=== PATIENT | male | born 1930 | race Caucasian/White ===

== ENCOUNTER 2019-01-13 17:11 | Observation (INO) ==
[2019-01-13 18:12] LABS: Hematocrit 32.7 % (42.0-52.0); Hemoglobin 10.7 gm/dL (13.5-18.0); Mean Cell Volume 83.6 fl (78-100); Mean Corpuscular Hemoglobin 27.4 pg (27-31); Mean Corpuscular Hgb Conc 32.7 g/dl (32-36); Mean Platelet Volume 10.5 fl (8-11.3); Neutrophil # 8.9 K/mm3 (1.3-6.0); Neutrophil % 80.2 % (42-75.0); Platelet Count 299 K/mm3 (150-450); Red Blood Count 3.91 M/mm3 (4.7-6.0); Red Cell Distribution Width 18.4 % (11.5-14.0)
[2019-01-13 18:27] LABS: ALT 453 U/L (19-67); AST 407 U/L (0-48); Albumin * 3.1 gm/dl (3.4-5.0); Alkaline Phosphatase * 658 U/L (50-170); Anion Gap 18.6 mmol/L (6.8-13.8); Bilirubin, Total 1.3 mg/dL (0.0-1.1); Blood Urea Nitrogen 38 mg/dL (6-23); Ca. Corrected For Albumin 9.1 mg/dL (8.4-10.2); Calcium * 8.7 mg/dL (7.9-10.9); Carbon Dioxide 23.5 mmol/L (24-32.6); Chloride 102 mmol/L (97-106); Digoxin 1.5 ng/mL (0.5-2.0); Glucose * 169 mg/dL (70-110); Potassium 5.1 mmol/L (3.4-4.6); Sodium 139 mmol/L (132-142); Total Protein 7.2 gm/dL (6.2-8.2)
[2019-01-13 18:30] LABS: Troponin I Less than 0.017 ng/mL (0.00-0.10)
[2019-01-13] MEDS ORDERED: NORMAL SALINE 1,000 ML IV ONE (18:52)
[2019-01-13] MEDS ORDERED: PIPERACILLIN SODIUM/TAZOBACTAM 3.375 GM in DEXTROSE 5 % IN WATER 100 ML IV ONE ×2 (18:52)
--- NOTE | 2019-01-13 19:18 | ERNOTE ---
Neuro HPI ER Record Date of Service: 01/13/19 Presenting Symptoms: weakness Time Seen by Provider: 01/13/19 17:42 Source: patient, family Exam Limitations: no limitations Immunizations: IMMUNIZATION HX Immunizations Up to Date Yes History of Influenza Vaccine Yes Hx Pneumococcal Vaccination Yes Allergies/Adverse Reactions: Allergies Allergy/AdvReac Type Severity Reaction Status Date / Time indomethacin AdvReac Intermediate RN CLINICAL REVIEW SIDE Verified 01/13/19 17:24 AFFECTS, UPSET STOMACH gluten AdvReac Mild GI s/s, Verified 01/13/19 17:24 HAS CELIAC DX lactose AdvReac Mild GI S/S Verified 01/13/19 17:24 NSAIDS (Non-Steroidal AdvReac AVOID PER Verified 01/13/19 17:[address] Anti-[address] ORDER Home Medications: HOME MEDICATIONS Atenolol [Tenormin] 25 mg PO DAILY #0 06/03/14 [Last Taken 07/09/16 04:00] Folic Acid 1 mg PO DAILY #0 06/03/14 [Last Taken 02/05/16 09:00] Omeprazole 40 mg PO DAILY #0 06/03/14 [Last Taken 02/05/16 09:00] Donepezil HCl [Aricept] 5 mg PO HS 01/22/16 [Last Taken 02/05/16 19:00] Finasteride [Proscar] 5 mg PO DAILY 01/22/16 [Last Taken 02/05/16 09:00] Acetaminophen [Tylenol] 500 mg PO Q4H PRN 07/05/16 [Last Taken Unknown] FLUoxetine HCL [Prozac] 20 mg PO DAILY 07/05/16 [Last Taken Unknown] Loperamide HCl [Imodium] 2 mg PO DAILY 07/05/16 [Last Taken Unknown] Cyanocobalamin (Vitamin B-12) [Vitamin B12] 1,000 mcg PO DAILY #1 tab 07/11/16 [Last Taken Unknown] Cholecalciferol [Vitamin D] 1,000 unit PO DAILY 05/15/18 [Last Taken Unknown] aspirin 81 mg chewable tablet 81 mg PO DAILY 05/30/18 [Last Taken Unknown] digoxin 125 mcg tablet 0.125 mg PO DAILY #90 tab 08/05/18 [Last Taken Unknown] diphenoxylate-atropine 2.5 mg-0.025 mg tablet 2.5 mg PO TID #90 tab 08/28/18 [Last Taken Unknown] Allopurinol [Zyloprim (Allopurinol)] 200 mg PO DAILY 01/13/19 [Last Taken U nknown] Travoprost [Travatan Z] 1 drp OPHTHALMIC (EYE) DAILY 01/13/19 [Last Taken Unknown] - History of Present Illness Narrative: Patient presents to the ED from assisted living. He has not been eating over the last 3-4 days. Today he was noted to be somewhat confused and could no longer walk on his own. This is over 6 hours old. The patient himself denies any pain. he denies any focal weakness. He normally walks with a walker, needed nursing assistance to get out of chair tonight. Son states that he didn't even touch his dinner tonight. He denies CP, cough, SOB, fever, abdominal pain or orhter complaints at this time. Onset: other - well over 6 hours - Character of Deficits New weakness: Present: other - trouble walking, chronic leg weakness. No acute unilateral focal motor or sensory deficits Additional Deficits: Present: cannot walk Baseline Gait: Present: uses a cane/walker Associated Symptoms: Reports: confused. Denies: fever/chills, chest pain, headache Prior Treament: Denies: recently seen, recently hospitalized Review of Systems - Review of Systems Constitutional: Absent: fever Respiratory: Absent: shortness of breath Cardiology: Absent: chest pain Gastrointestinal/Abdominal: Absent: abdominal pain Genitourinary: Absent: dysuria All Other Systems: All systems neg except as marked Medical History (Last Reviewed 01/13/19 @ 19:08 by Isaac Hodge MD) Anemia Onset Date: Unknown BPH without urinary obstruction Onset Date: Unknown Fracture of radius and ulna Onset Date: ~01/14/12 Left lower end; closed; distal end of ulna (alone) Gait disorder Onset Date: ~05/19/14 Hx of malignant melanoma of skin Onset Date: Unknown Skin CA removal on left ear, Skin CA to scalp Removal Hyperlipidemia due to dietary fat intake Onset Date: Unknown Internal derangement of knee Onset Date: ~01/14/12 Left Knee Left patella fracture Onset Date: ~01/16/12 From a fall Memory deficit Onset Date: ~05/19/14 Neuropathy Onset Date: 02/25/14 Bilat legs; L4-L5 NCV [facility] 02/25/2014 Osteoarthritis Onset Date: Unknown PPD positive Onset Date: ~1995 Pseudogout Onset Date: ~02/27/12 Renal failure Onset Date: ~200809 Grade 3 Rosacea, acne Onset Date: Unknown Tinnitus Onset Date: Unknown Varicose veins of left lower extremity with pain Onset Date: Unknown Visual impairment Onset Date: Unknown Wears glasses Surgical History: Surgical History (Last Reviewed 01/13/19 @ 19:08 by Isaac Hodge MD) History of carpal tunnel surgery of right wrist Onset Date: Unknown Hx of colonoscopy Onset Date: Unknown Celiac Hx of hernia repair Onset Date: ~1989 Left Sided Hernia Repair Family History: Family History (Last Reviewed 01/13/19 @ 19:08 by Isaac Hodge MD) Father , @ age 60 Myocardial infarction Mother Hypertension Son Asthma Social History: Preferred Language Botswanan Do you have any sabianism or No cultural preference? Smoking Status Never smoker Abuse History No History of abuse Psych History No pertinent hx Alcohol Use none Drug Use none (Last Updated 05/30/18 @ 12:17 by Brian Chang DO) No Social History Section defined Physical Exam - Physical Exam General Appearance: Present: alert, no apparent distress, other - lying in bed with eyes closed, no distress. Easliy arouses and answers questions Head Exam: Present: normal inspection, no evidence of injury Eye Exam: Normal inspection: bilateral, PERRL: bilateral Ears, Nose, Throat: Present: dry mucous membranes, other - clinically dehydrated Neck: Present: normal inspection Respiratory: Present: no respiratory distress, normal breath sounds, no accesso ry muscle use, lungs clear Cardiovascular/Chest: Present: normal peripheral pulses, irregularly irregular Gastrointestinal/Abdominal: Present: normal bowel sounds, nontender, nondistended, soft, other - I cannot elicit any tendenress in the abdomen Back Exam: Absent: CVA tenderness (R), CVA tenderness (L) Extremity Exam: Present: normal range of motion Neurological Exam: Present: alert, no motor/sensory deficits, other - NIH - 0. I do not identify any evidence of acute stroke by exam. Skin Exam: Present: normal color, warm/dry Progress - Results and Orders Patient's Lab Results:: I have reviewed the patient's lab results. - Vital Signs Patient's Vital Signs:: I have reviewed the patient's vital signs. Vital Signs: Vital Signs 01/13/19 17:18 Temperature 36.6 C Pulse Rate 87 Respiratory Rate 16 Blood Pressure 105/60 O2 Sat by Pulse Oximetry 91 L - EKG EKG #1 EKG: atrial fibrillation EKG read: Interp. by me - X-Ray X-Ray #1 X-Ray: chest Interpretation: Interp. by me X-ray Comments: I reviewed official radiology report - CT/Ultrasound CT/Ultrasound Narrative: I reviewed official radiology report for CT head. - Progress/Reassessment Chief Complaint: Altered Mental Status Progress Note-Subjective: 01/13/19 19:10 Patient clinically dehydrated which is likely the cause of his worsening kidney function. I ordered IV fluids. Has elevated bili/liver enzymes. IV ABx given for this, Zosyn. Patient needs further evaluation of his RUQ for painless bili and liver enzyme elevation. I can elicit no tenderness in the abdomen with palpation. I discussed the case with Dr Pokl who will admit him here for IV fluids and further work up for his lab abnormalities. Patient and family agreeable. I have initiated the admission process with RUQ US ordered in am. A cath UA is pending, I will have Dr Mccray the night doctor check the urine before he goes to the floor and discuss this with Dr Polk if indicated. Family is agreeable to the patient staying here for initial management and work up, understanding that he may need to be transferred based on what findings emerge. 01/13/19 19:46 Departure Clinical Impression: Elevated liver enzymes, Weakness, Dehydration, Worsening renal function, Elevated bilirubin - Departure Disposition: Still a patient Condition: Fair
[2019-01-13 19:48] LABS: Urine Ketone 5 mg/dL (NEGATIVE); Urine Nitrite Negative (NEGATIVE); Urine Protein 100 mg/dL (NEGATIVE); Urine Specific Gravity 1.025 SP.GR. (1.005-1.030)
[2019-01-13 19:59] LABS: Urine Blood 5 /ul (NEGATIVE); Urine Color Amber
[2019-01-13 20:00] LABS: Urine Appearance Clear (CLEAR); Urine Bacteria 1+; Urine Mucus Moderate - 2+; Urine RBC 0-5 /hpf (0-5)
--- NOTE | 2019-01-13 23:56 | HP ---
Chief Complaint - Chief Complaint Date of Service: 01/13/19 Time of Service: 23:53 Chief Complaint: Altered mental status History of Present Illness: Morgan is an 88 yo male, a resident at [facility] where he is independent with assistance. He was reported to not be eating or drinking for the last three days and had an altered mental state where he stopped talking. He is reported to do this when he gets sick. He was brought to the [facility] ER for further evaluation. Creatinine is elevated at 3 with 1 as a baseline. He also has elevated bilirubin and liver enzymes. He makes good eye contact but does not attempt to engage in conversation. He has no evidence of discomfort. Medical History (Last Reviewed 01/13/19 @ 19:08 by Isaac Hodge MD) Anemia Onset Date: Unknown BPH without urinary obstruction Onset Date: Unknown Fracture of radius and ulna Onset Date: ~01/14/12 Left lower end; closed; distal end of ulna (alone) Gait disorder Onset Date: ~05/19/14 Hx of malignant melanoma of skin Onset Date: Unknown Skin CA removal on left ear, Skin CA to scalp Removal Hyperlipidemia due to dietary fat intake Onset Date: Unknown Internal derangement of knee Onset Date: ~01/14/12 Left Knee Left patella fracture Onset Date: ~01/16/12 From a fall Memory deficit Onset Date: ~05/19/14 Neuropathy Onset Date: 02/25/14 Bilat legs; L4-L5 NCV EMG [facility] 02/25/2014 Osteoarthritis Onset Date: Unknown PPD positive Onset Date: ~1995 Pseudogout Onset Date: ~02/27/12 Renal failure Onset Date: ~200809 Grade 3 Rosacea, acne Onset Date: Unknown Tinnitus Onset Date: Unknown Varicose veins of left lower extremity with pain Onset Date: Unknown Visual impairment Onset Date: Unknown Wears glasses Surgical History: Surgical History (Last Updated 01/13/19 @ 21:11 by Veronika Rahman RN) Shoulder fracture, left Repaired surgically History of carpal tunnel surgery of right wrist Onset Date: Unknown Hx of colonoscopy Onset Date: Unknown Celiac Hx of hernia repair Onset Date: ~1989 Left Sided Hernia Repair Family History: Family History (Last Reviewed 01/13/19 @ 19:08 by Isaac Hodge MD) Father , @ age 60 Myocardial infarction Mother Hypertension Son Asthma Social History: Patient Lives/Resources [facility] Utilized Preferred Language Slovenian Do you have any catholic or No cultural preference? Smoking Status Never smoker Have you smoked in the past 12 No months Abuse History No History of abuse Psych History No pertinent hx Alcohol Use none Drug Use none (Last Updated 05/30/18 @ 12:17 by Brian Chang DO) No Social History Section defined Review Of Systems (GEN) - Review of Systems Additional Comments: Unable to get ROS due to patient condition Immunizations: IMMUNIZATION HX Immunizations Up to Date Yes History of Influenza Vaccine Yes Hx Pneumococcal Vaccination Yes Allergies/Adverse Reactions: Allergies Allergy/AdvReac Type Severity Reaction Status Date / Time indomethacin AdvReac Intermediate DENTAL FINANCIAL COORDINATOR SIDE Verified 01/13/19 17:24 AFFECTS, UPSET STOMACH gluten AdvReac Mild GI s/s, Verified 01/13/19 17:24 HAS CELIAC DX lactose AdvReac Mild GI S/S Verified 01/13/19 17:24 NSAIDS (Non-Steroidal AdvReac AVOID PER Verified 01/13/19 17:[address] ORDER Home Medications: HOME MEDICATIONS Atenolol [Tenormin] 25 mg PO DAILY #0 06/03/14 [Last Taken 07/09/16 04:00] Folic Acid 1 mg PO DAILY #0 06/03/14 [Last Taken 02/05/16 09:00] Omeprazole 40 mg PO DAILY #0 06/03/14 [Last Taken 02/05/16 09:00] Donepezil HCl [Aricept] 5 mg PO HS 01/22/16 [Last Taken 02/05/16 19:00] Finasteride [Proscar] 5 mg PO DAILY 01/22/16 [Last Taken 02/05/16 09:00] Acetaminophen [Tylenol] 500 mg PO Q4H PRN 07/05/16 [Last Taken Unknown] FLUoxetine HCL [Prozac] 20 mg PO DAILY 07/05/16 [Last Taken Unknown] Loperamide HCl [Imodium] 2 mg PO PRN PRN 07/05/16 [Last Taken Unknown] Cholecalciferol [Vitamin D] 1,000 unit PO DAILY 05/15/18 [Last Taken Unknown] aspirin 81 mg chewable tablet 81 mg PO DAILY 05/30/18 [Last Taken Unknown] digoxin 125 mcg tablet 0.125 mg PO DAILY #90 tab 08/05/18 [Last Taken Unknown] diphenoxylate-atropine 2.5 mg-0.025 mg tablet 2.5 mg PO TID #90 tab 08/28/18 [Last Taken Unknown] Allopurinol [Zyloprim (Allopurinol)] 200 mg PO DAILY 01/13/19 [Last Taken Unknown] Cyanocobalamin (Vitamin B-12) [Vitamin B12] 1,000 mcg INJ Q30D 01/13/19 [Last Taken 12/29/18] Loperamide HCl [Imodium] 2 mg PO DAILY 01/13/19 [Last Taken Unknown] Travoprost [Travatan Z] 1 drp OPHTHALMIC (EYE) DAILY 01/13/19 [Last Taken Unknown] Exam - Exam Vital Signs: Vital Signs - Last Taken Temp 36.8 C 01/13/19 21:53 Pulse 76 01/13/19 21:53 Resp 16 01/13/19 21:53 BP 125/66 01/13/19 21:53 Pulse Ox 94 01/13/19 21:53 Constitutional: Present: Alert, Other - Morgan makes eye contact, but does not attmept to communicate Eye Exam: bilateral eye: normal inspection Respiratory: Present: lungs clear, normal breath sounds Cardiovascular/Chest: Present: regular rate, rhythm, no murmur Abdomen: Present: Normal bowel sounds, soft, nontender, nondistended Skin Exam: Present: normal color, warm/dry, no cyanosis Diagnostic Studies: Abnormal Lab Results 01/13/19 01/13/19 01/13/19 Range/Units 18:00 18:00 18:40 WBC 11.0 H (4.0-10.5) K/mm3 RBC 3.91 L (4.7-6.0) M/mm3 Hgb 10.7 L (13.5-18.0) gm/dL Hct 32.7 L (42.0-52.0) % RDW 18.4 H (11.5-14.0) % Immature Gran % (Auto) 0.50 H (0.001-0.429) % Immature Gran # (Auto) 0.05 H (0.000-0.0310) K/mm3 Neutrophils % 80.2 H (42-75.0) % Lymphocytes % 8.3 L (20-51) % Monocytes % 10.6 H (0.0-9) % Neutrophils # 8.9 H (1.3-6.0) K/mm3 Lymphocytes # 0.91 L (1.5-3.5) k/mm3 Monocytes # 1.2 H (0.0-1.0) k/mm3 Potassium 5.1 H (3.4-4.6) mmol/L Carbon Dioxide 23.5 L (24-32.6) mmol/L Anion Gap 18.6 H (6.8-13.8) mmol/L BUN 38 H (6-23) mg/dL Creatinine 3.17 H D (0.4-1.4) mg/dL Est GFR (Non-Af Amer) 20 L D (60-130) mL/min Random Glucose 169 H (70-110) mg/dL Total Bilirubin 1.3 H (0.0-1.1) mg/dL AST 407 H (0-48) U/L ALT 453 H (19-67) U/L Alkaline Phosphatase 658 H (50-170) U/L Albumin 3.1 L (3.4-5.0) gm/dl Urine Protein 100 H (NEGATIVE) mg/dL Urine Blood 5 H (NEGATIVE) /ul Urine Bilirubin 3 H (NEGATIVE) mg/dl Prot Sulfosalicylic Acd 4+ H (0) mg/dL Urine Urobilinogen 2.0 H (NORMAL) EU/dl Ur Leukocyte Esterase 25 H (NEGATIVE) /ul Urine WBC 5-10 H (0-5) /hpf Urine Bacteria 1+ H (NONE) Urine Mucus Moderate - 2+ H (NONE) Laboratory Results WBC 11.0 K/mm3 (4.0-10.5) H 01/13/19 18:00 RBC 3.91 M/mm3 (4.7-6.0) L 01/13/19 18:00 Hgb 10.7 gm/dL (13.5-18.0) L 01/13/19 18:00 Hct 32.7 % (42.0-52.0) L 01/13/19 18:00 MCV 83.6 fl (78-100) 01/13/19 18:00 MCH 27.4 pg (27-31) 01/13/19 18:00 MCHC 32.7 g/dl (32-36) 01/13/19 18:00 RDW 18.4 % (11.5-14.0) H 01/13/19 18:00 Plt Count 299 K/mm3 (150-450) 01/13/19 18:00 MPV 10.5 fl (8-11.3) 01/13/19 18:00 Immature Gran % (Auto) 0.50 % (0.001-0.429) H 01/13/19 18:00 Immature Gran # (Auto) 0.05 K/mm3 (0.000-0.0310) H 01/13/19 18:00 Neutrophils % 80.2 % (42-75.0) H 01/13/19 18:00 Lymphocytes % 8.3 % (20-51) L 01/13/19 18:00 Monocytes % 10.6 % (0.0-9) H 01/13/19 18:00 Eosinophils % 0.1 % (0.0-3.0) 01/13/19 18:00 Basophils % 0.3 % (0.0-1.0) 01/13/19 18:00 Nucleated RBC % 0.0 k/mm3 (0-1) 01/13/19 18:00 Neutrophils # 8.9 K/mm3 (1.3-6.0) H 01/13/19 18:00 Lymphocytes # 0.91 k/mm3 (1.5-3.5) L 01/13/19 18:00 Monocytes # 1.2 k/mm3 (0.0-1.0) H 01/13/19 18:00 Eosinophils # 0.0 k/mm3 (0.0-0.7) 01/13/19 18:00 Absolute Basophils 0.0 k/mm3 (0.0-0.1) 01/13/19 18:00 Sodium 139 mmol/L (132-142) 01/13/19 18:00 Plasma Sodium 140 mmol/L (130-142) 01/13/19 18:00 Potassium 5.1 mmol/L (3.4-4.6) H 01/13/19 18:00 Chloride 102 mmol/L (97-106) 01/13/19 18:00 Carbon Dioxide 23.5 mmol/L (24-32.6) L 01/13/19 18:00 Anion Gap 18.6 mmol/L (6.8-13.8) H 01/13/19 18:00 BUN 38 mg/dL (6-23) H 01/13/19 18:00 Creatinine 3.17 mg/dL (0.4-1.4) H D 01/13/19 18:00 Est GFR (Non-Af Amer) 20 mL/min (60-130) L D 01/13/19 18:00 BUN/Creatinine Ratio 12.0 (9.0-21.6) 01/13/19 18:00 Random Glucose 169 mg/dL (70-110) H 01/13/19 18:00 Lactic Acid, Venous 1.3 mmol/L (0.4-2.0) 01/13/19 18:00 Calcium 8.7 mg/dL (7.9-10.9) 01/13/19 18:00 Calcium Adj for Albumin 9.1 mg/dL (8.4-10.2) 01/13/19 18:00 Total Bilirubin 1.3 mg/dL (0.0-1.1) H 01/13/19 18:00 AST 407 U/L (0-48) H 01/13/19 18:00 ALT 453 U/L (19-67) H 01/13/19 18:00 Alkaline Phosphatase 658 U/L (50-170) H 01/13/19 18:00 Troponin I Less than 0.017 ng/mL (0.00-0.10) 01/13/19 18:00 Total Protein 7.2 gm/dL (6.2-8.2) 01/13/19 18:00 Albumin 3.1 gm/dl (3.4-5.0) L 01/13/19 18:00 Urine Color Leslie 01/13/19 18:40 Urine Appearance Clear (CLEAR) 01/13/19 18:40 Urine pH 6.0 pH (5.0-7.0) 01/13/19 18:40 Ur Specific [place] 1.025 SP.GR. (1.005-1.030) 01/13/19 18:40 Urine Protein 100 mg/dL (NEGATIVE) H 01/13/19 18:40 Urine Glucose (UA) Negative mg/dL (NEGATIVE) 01/13/19 18:40 Urine Ketones 5 mg/dL (NEGATIVE) 01/13/19 18:40 Urine Blood 5 /ul (NEGATIVE) H 01/13/19 18:40 Urine Nitrate Negative (NEGATIVE) 01/13/19 18:40 Urine Bilirubin 3 mg/dl (NEGATIVE) H 01/13/19 18:40 Urine Ictotest Negative (NEGATIVE) 01/13/19 18:40 Prot Sulfosalicylic Acd 4+ mg/dL (0) H 01/13/19 18:40 Urine Urobilinogen 2.0 EU/dl (NORMAL) H 01/13/19 18:40 Ur Leukocyte Esterase 25 /ul (NEGATIVE) H 01/13/19 18:40 Urine RBC 0-5 /hpf (0-5) 01/13/19 18:40 Urine WBC 5-10 /hpf (0-5) H 01/13/19 18:40 Ur Epithelial Cells 0-5 /hpf (0-5) 01/13/19 18:40 Urine Bacteria 1+ (NONE) H 01/13/19 18:40 Urine Mucus Moderate - 2+ (NONE) H 01/13/19 18:40 Urine Culture Comments Culture to follow 01/13/19 18:40 Digoxin 1.5 ng/mL (0.5-2.0) 01/13/19 18:00 Assessment/Plan - Narrative Narrative: Morgan is an 88 yo male with acute elevation of his liver enzymes, acute on chronic kidney failure with creatinine of 3. This appears to be partly due to dehydration as it is reported he has not ate or drank well in the last 3 days. His liver enzymes and bilirubin are elevated which gives concern for biliary obstruction. He is not jaundiced, nor does he have abdominal pain. Will plan to get US of [facility] tomorrow morning. Will give IV fluids and monitor renal function and liver enzymes. Will admit to observation at this time. - Assessment/Plan (1) Acute on chronic kidney failure Problem: Acute (2) Elevated liver enzymes Problem: Acute (3) Dehydration Problem: Acute
[2019-01-14 07:24] LABS: Urine Bilirubin 3 mg/dl (NEGATIVE)
[2019-01-14] MEDS ORDERED: NORMAL SALINE 1,000 ML IV PRN (08:42)
[2019-01-14 08:49] LABS: Hematocrit 29.9 % (42.0-52.0); Hemoglobin 9.7 gm/dL (13.5-18.0); Mean Corpuscular Hemoglobin 27.2 pg (27-31); Mean Corpuscular Hgb Conc 32.4 g/dl (32-36); Mean Platelet Volume 9.5 fl (8-11.3); Neutrophil # 8.8 K/mm3 (1.3-6.0); Neutrophil % 76.1 % (42-75.0); Platelet Count 273 K/mm3 (150-450); Red Blood Count 3.56 M/mm3 (4.7-6.0); Red Cell Distribution Width 18.2 % (11.5-14.0); White Blood Count 11.6 K/mm3 (4.0-10.5)
[2019-01-14 09:03] LABS: Albumin * 2.6 gm/dl (3.4-5.0); Anion Gap 14.4 mmol/L (6.8-13.8); BUN/Creatinine Ratio 12.6 (9.0-21.6); Bilirubin, Total 1.3 mg/dL (0.0-1.1); Ca. Corrected For Albumin 8.8 mg/dL (8.4-10.2); Carbon Dioxide 27.4 mmol/L (24-32.6); Potassium 4.8 mmol/L (3.4-4.6); Total Protein 6.2 gm/dL (6.2-8.2)
[2019-01-14] MEDS ORDERED: ACETAMINOPHEN 500 MG TABLET PO PRN (11:25)
[2019-01-14] MEDS ORDERED: LOPERAMIDE HCL 2 MG CAPSULE PO PRN (11:25)
[2019-01-14] MEDS ORDERED: MORPHINE SULFATE 10 MG/0.5 ML SYRINGE PO PRN (11:27)
[2019-01-14] MEDS ORDERED: SENNOSIDES/DOCUSATE SODIUM 1 TAB TABLET PO PRN (11:27)
[2019-01-14] MEDS ORDERED: LORazepam 1 MG TABLET PO PRN (11:27)
[2019-01-14] MEDS ORDERED: ONDANSETRON HCL 4 MG TABLET PO PRN (11:34)
--- NOTE | 2019-01-14 12:30 | DS ---
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 He had a RUQ US due to the elevated liver enzymes and elevated bilirubin. 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 I discussed with the patient and family the options of transfer for ERCP vs hospice consult. After a family discussion they elected for hospice consult and comfort cares. He will be discharged back to [facility] with hospice through [facility]. His life expectancy is less than 6 months due to biliary obstruction secondary to mass. I actually suspect that he will only live days due to his condition. Medications were adjusted for comfort only. Procedures Performed: none Results and Findings: Pending Mircobiology Results 01/13/19 18:40 Urine,Voided Urine Culture - Preliminary No Growth Lab Pending Results 01/13/19 18:00: WBC 11.0 H, RBC 3.91 L, Hgb 10.7 L, Hct 32.7 L, MCV 83.6, MCH 27.4, MCHC 32.7, RDW 18.4 H, Plt Count 299, MPV 10.5, Immature Gran % (Auto) 0.50 H, Immature Gran # (Auto) 0.05 H, Neutrophils % 80.2 H, Lymphocytes % 8.3 L, Monocytes % 10.6 H, Eosinophils % 0.1, Basophils % 0.3, Nucleated RBC % 0.0, Neutrophils # 8.9 H, Lymphocytes # 0.91 L, Monocytes # 1.2 H, Eosinophils # 0.0, Absolute Basophils 0.0 01/13/19 18:00: Sodium 139, Plasma Sodium 140, Potassium 5.1 H, Chloride 102, Carbon Dioxide 23.5 L, Anion Gap 18.6 H, BUN 38 H, Creatinine 3.17 H D, Est GFR (Non-Af Amer) 20 L D, BUN/Creatinine Ratio 12.0, Random Glucose 169 H, Calcium 8.7, Calcium Adj for Albumin 9.1, Total Bilirubin 1.3 H, AST 407 H, ALT 453 H, Alkaline Phosphatase 658 H, Troponin I Less than 0.017, Total Protein 7.2, Albumin 3.1 L, Digoxin 1.5 01/13/19 18:00: Lactic Acid, Venous 1.3 01/13/19 18:40: Urine Color Leslie, Urine Appearance Clear, Urine pH 6.0, Ur Specific [place] 1.025, Urine Protein 100 H, Urine Glucose (UA) Negative, Urine Ketones 5, Urine Blood 5 H, Urine Nitrate Negative, Urine Bilirubin 3 H, Urine Ictotest Negative, Prot Sulfosalicylic Acd 4+ H, Urine Urobilinogen 2.0 H, Ur Leukocyte Esterase 25 H, Urine RBC 0-5, Urine WBC 5-10 H, Ur Epithelial Cells 0- 5, Urine Bacteria 1+ H, Urine Mucus Moderate - 2+ H, Urine Culture Comments Culture to follow 01/14/19 08:42: WBC 11.6 H, RBC 3.56 L, Hgb 9.7 L, Hct 29.9 L, MCV 84.0, MCH 27.2, MCHC 32.4, RDW 18.2 H, Plt Count 273, MPV 9.5, Immature Gran % (Auto) 0.40, Immature Gran # (Auto) 0.05 H, Neutrophils % 76.1 H, Lymphocytes % 14.0 L, Monocytes % 8.7, Eosinophils % 0.5, Basophils % 0.3, Nucleated RBC % 0.0, Neutrophils # 8.8 H, Lymphocytes # 1.62, Monocytes # 1.0, Eosinophils # 0.1, Absolute Basophils 0.0 01/14/19 08:42: Sodium 143 H, Plasma Sodium 143 H, Potassium 4.8 H, Chloride 106, Carbon Dioxide 27.4, Anion Gap 14.4 H, BUN 41 H, Creatinine 3.25 H, Est GFR (Non-Af Amer) 19 L, BUN/Creatinine Ratio 12.6, Random Glucose 100 D, Calcium 8.0, Calcium Adj for Albumin 8.8, Total Bilirubin 1.3 H, AST 363 H, ALT 416 H, Alkaline Phosphatase 557 H, Total Protein 6.2, Albumin 2.6 L Discharge Location: [facility] Disposition: Hospice Home Home Health Agency: [facility] Condition: Poor Discharge Activity: Activity as tolerated Discharge Diet: General/regular food Referrals: Brian Chang DO [Primary Care Provider] - (No appointment needed as patient is in hospice) Problem Oriented Discharge Instructions to Patient/Family: Pancreatic Cancer Additional Patient Instructions (free text): [facility] [place]. Please fax orders and call report upon discharge. Prescriptions (Any new or edited meds): Lorazepam [Lorazepam Intensol] 1 mg PO Q1H #60 oral.conc Morphine Sulfate [Morphine Sulfate Conc. Oral Solution] 5 mg PO Q1H PRN #60 syringe PRN Reason: pain Ondansetron HCl [Zofran] 4 mg PO Q4H PRN #60 tab PRN Reason: Nausea And Vomiting Sennosides/Docusate Sodium [Senokot-S] 2 tab PO HS PRN #60 tab PRN Reason: diarrhea Complete Home Medications List: Complete Home Medication List: Atenolol [Tenormin] 25 mg PO DAILY #0 06/03/14 Acetaminophen [Tylenol] 500 mg PO Q4H PRN 07/05/16 FLUoxetine HCL [Prozac] 20 mg PO DAILY 07/05/16 Loperamide HCl [Imodium] 2 mg PO PRN PRN 07/05/16 digoxin 125 mcg tablet 0.125 mg PO DAILY #90 tab 08/05/18 diphenoxylate-atropine 2.5 mg-0.025 mg tablet 2.5 mg PO TID #90 tab 08/28/18 Loperamide HCl [Imodium] 2 mg PO DAILY 01/13/19 Hydrophilic Ointment [Aquaphilic Ointment] 1 appl TOPICAL BID jar 01/14/19 Lorazepam [Lorazepam Intensol] 1 mg PO Q1H #60 oral.conc 01/14/19 Morphine Sulfate [Morphine Sulfate Conc. Oral Solution] 5 mg PO Q1H PRN #60 syringe 01/14/19 Ondansetron HCl [Zofran] 4 mg PO Q4H PRN #60 tab 01/14/19 Sennosides/Docusate Sodium [Senokot-S] 2 tab PO HS PRN #60 tab 01/14/19
[2019-01-14] MEDS ORDERED: DIPHENOXYLATE HCL/ATROP SULF 2.5 MG TABLET PO SCH (13:00)
[2019-01-14 13:50] VITALS: BP 109/53
[2019-01-14] MEDS ORDERED: TRAVOPROST 25 DROP BTL EACHEYE SCH (21:00)
[2019-01-14] MEDS ORDERED: HYDROPHILIC OINTMENT 454 APPL JAR TP SCH (21:00)
[2019-01-15] MEDS ORDERED: DIGOXIN 0.125 MG TABLET PO SCH (09:00)
[2019-01-15] MEDS ORDERED: LOPERAMIDE HCL 2 MG CAPSULE PO SCH (09:00)
[2019-01-15] MEDS ORDERED: FLUoxetine HCL 20 MG CAPSULE PO SCH (09:00)
[2019-01-15] MEDS ORDERED: ATENOLOL 25 MG TABLET PO SCH (09:00)
== END 2019-01-14 13:53 | disposition hospice, home (50) ==
LOC: ER 17:11 → MS 17:11
PROVIDERS: ADMIT Family Medicine; ATTEND Family Medicine
CPT/HCPCS: 36415; 70450; 71010; 71045; 76700; 80053; 80162; 81001; 83605; 84484; 85025; 87081; 87086; 93005; 96361; 96365; 99285; G0378